=== PATIENT | male | born 1940 | race Caucasian/White ===

== ENCOUNTER → 2021-02-21 | Outpatient (CLI) | payer OTHER ==
--- NOTE | 2021-02-21 15:53 | CARDNUC ---
[place] [address] CARDIAC NUCLEAR IMAGING REPORT Name: MALENA MARQUEZ Room: [facility]#: [id number] Admission: 02/21/21 Attend Phys: Roya Maya, Discharge: Date of : 44 Date of Service: 02/21/21 1553 Report #: [id number] THIS REPORT FOR: cc: Micha Berumen MD, Dean L. MD Liston, Michael J. MD [facility] ~ APPROVED REPORT Imaging Protocol: Rest Tc-99m/Stress Tc-99m 1 day Study performed: 02/21/2021 14:07:21 Indication: Abnormal EKG Patient Location: Out-Patient NM Tech:LORE Casillas Ht: 5 ft 9 in Wt: 220 lbs BSA: 2.15 m2 BMI: 32.48 Medical History Medical History: HTN, Hyperlipidemia Medications: lisinopril Allergies: No known drug allergies Cardiac Risk Factors: Age, HTN, Hyperlipidemia, Past Smoker Exercise History: Physically active Resting Data Rest SPECT myocardial perfusion imaging was performed in supine position 30 minutes following the intravenous injection of 9.9 mCi of Tc-99m Sestamibi. Time of rest injection: 1300 Date: 02/21/2021 The images were gated to evaluate regional wall motion and calculate left ventricular ejection fraction. Administration Route: IV Administration Site: Right Hand Exercise Stress At peak stress, the patient was injected intravenously with 30.2mCi of Tc-99m Sestamibi. Time of stress injection: 1435 Date: 02/21/2021 Administration Route: IV Administration Site: Right Hand Gated Stress SPECT was performed 30 minutes after stress injection. The images were gated to evaluate regional [place] [address] CARDIAC NUCLEAR IMAGING REPORT Name: MALENA MARQUEZ Room: [facility]#: [id number] Admission: 02/21/21 Attend Phys: Roya Maya, Discharge: Date of : 44 Date of Service: 02/21/21 1553 Report #: [id number] left ventricular ejection fraction. Stress Test Details Stress Test: Exercise stress testing was performed using a Azael protocol. HR Max Heart Rate (APMHR): 142 bpm Resting HR: 63 bpm Target HR (85% APMHR): 120 bpm Max HR Achieved: 128 bpm % of APMHR: 90 Recovery HR: 76 bpm BP Resting BP: 156/72 mmHg Max BP: 177/73 mmHg Recovery BP: 177/98 mmHg ECG Resting ECG: Sinus Rhythm Stress ECG: Sinus Tachycardia ST Change: None Arrhythmia: VPC's Recovery ECG: Sinus Rhythm Recovery ST Change: None Recovery Arrhythmia: VPC's Clinical Reason for Termination: Fatigue Exercise duration: 7 min 59 sec Exercise capacity: 7.05 METs Functional Aerobic Impairment 90% The patient tolerated standard Azael protocol exercise without significant cardiac complaint. Stress ECG Conclusion The baseline twelve-lead EKG shows sinus rhythm with occasional unifocal premature ventricular contractions. EKGs obtained during and post exercise show sinus rhythm and sinus tachycardia with no significant ST segment changes when compared to baseline. There were frequent unifocal premature ventricular contractions noted. Study Quality Study: Good Artifact: No artifact Study Data At rest, the left ventricular ejection fraction was 61%.. [place] [address] CARDIAC NUCLEAR IMAGING REPORT Name: ALMAMALENA Room: [facility]#: [id number] Admission: 02/21/21 Attend Phys: Roya Maya, Discharge: Date of : 44 Date of Service: 02/21/21 1553 Report #: [id number] Post stress, the left ventricular ejection was 62%.. TID = 0.88. Perfusion Perfusion images obtained at rest and post exercise stress show relatively uniform uptake of the radioisotope throughout the myocardium. Post-rest prone imaging shows uniform uptake of the radioisotope throughout the myocardium. There were no defects to suggest infarct or ischemia. Wall Motion Gated images were somewhat compromised by the arrhythmia. Wall motion on the raw data appears relatively normal. Nuclear Conclusion ECG Findings: negative for ischemia Clinical Findings: negative for ischemia Nuclear Findings: negative for ischemia Exercise Capacity: normal Left Ventricular Function: normal Risk Study: low Perfusion images show no defect to suggest infarct or ischemia. Left ventricular systolic function appears grossly normal. This is not a high risk study. <Conclusion> The baseline twelve-lead EKG shows sinus rhythm with occasional unifocal premature ventricular contractions. EKGs obtained during and post exercise show sinus rhythm and sinus tachycardia with no significant ST segment changes when compared to baseline. There were frequent unifocal premature ventricular contractions noted. <ELECTRONICALLY SIGNED> By: Rao Antonio MD, FACC 02/21/21 1553 1553 1553 Rao Antonio MD, FACC /INF
== END ==
LOC: M.NUC 12:18
PROVIDERS: ATTEND Internal Medicine
DX: R94.30 Abnormal result of cardiovascular function study, unspecified (principal)